=== PATIENT | male | born 2000 | race Caucasian/White ===

== ENCOUNTER 2024-04-01 12:27 | Emergency (ER) | payer BC, OTHER, SELFPAY ==
[2024-04-01 12:44] VITALS: BP 110/79; PULSE 80; RESP 16; TEMP 36.7; O2SAT 99
--- NOTE | 2024-04-01 12:53 | ED.EAR ---
HPI - Ear Problem General Chief complaint: Ear Stated complaint: ear infection Time Seen by Provider: 04/01/24 12:54 Source: patient, RN notes reviewed and old records reviewed Mode of arrival: ambulatory Limitations: no limitations History of Present Illness HPI Narrative: Patient with history of allergic rhinitis, chronic runny nose, presents with complaints of right ear pain that began a couple days ago. He reports symptoms are worsening. He denies any fever, chills, sweats. He has been taking [id number] pain relievers for symptoms with good relief. Voices no other concerns or complaints at this time Related Data Allergies Allergy/AdvReac Type Severity Reaction Status Date / Time No Known Allergies Allergy Verified 04/01/24 12:53 Review of Systems Review of Systems: All systems reviewed & are unremarkable except as noted in HPI and below Constitutional: Constitutional: Reports no additional constitutional complaints ENT: Reports system reviewed and no additional complaints, except as documented, Reports otalgia, Reports nasal congestion and Reports nasal discharge Cardiovascular: Cardiovascular: Reports no additional cardiovascular complaints Respiratory: Respiratory: Reports no additional respiratory complaints Gastrointestinal: Gastrointestinal: Reports no additional gastrointestinal complaints PMFSH Comments At the time of my signature, I reviewed and agree with the nursing past medical, surgical, social, and family history. There is no relevant family history pertinent to the patient complaint. Exam Const: General: cooperative, no acute distress, alert and awake Orientation/consciousness: oriented to person, oriented to place and oriented to time HENMT: Head: normal to inspection Ears: TM normal on the left and TM abnormal erythematous and with loss of landmarks Resp: Effort & Inspection: normal respiratory effort and able to speak in complete sentences Auscultation: clear to auscultation bilaterally, no crackles, no rales, no rhonchi and no wheezes Cardio: Palpation: normal PMI Rate: regular rate Rhythm: regular rhythm Heart sounds: S1 normal heart sound present and S2 normal heart sound present Neuro: General: oriented to person, oriented to place and oriented to time Cranial nerves: Yes CN's II-XII intact bilaterally Psych: Appearance: grossly normal Thought process: Normal thought process present Insight: Good insight present (Psych) Judgement: Good judgement present (Psych) Course Course Level of Care: Express Care Visit Vital Signs Vital signs: Vital Signs Temperature 98.1 F 04/01/24 12:44 Pulse Rate 80 04/01/24 12:44 Respiratory Rate 16 04/01/24 12:44 Blood Pressure 110/79 04/01/24 12:44 Pulse Oximetry 99 04/01/24 12:44 Oxygen Delivery Room Air 04/01/24 12:44 Temperature 98.1 F 04/01/24 12:44 Pulse Rate 80 04/01/24 12:44 Respiratory Rate 16 04/01/24 12:44 Blood Pressure 110/79 04/01/24 12:44 Pulse Oximetry 99 04/01/24 12:44 Oxygen Delivery Room Air 04/01/24 12:44 Reviewed Medical Decision Making MDM Narrative Medical decision making narrative: right ear pain, history and physical consistent with otitis media. Patient nontoxic appearing. Stable discharge home on p.o. antibiotic therapy. Discharge instructions reviewed with patient, as well as provided in writing per nursing staff. The instructions also include specific and strict return/GO TO THE ER as well as f/u information. All questions have been answered, and the patient deny any further questions with discharge and discharge plan. Some parts of this dictation were generated by voice recognition software and may contain typographical and/or grammatical inaccuracies. Medical Records Medical records reviewed: Yes I reviewed the external patient's medical records. Vital Signs Vital Signs: Vital Signs Temperature 98.1 F 04/01/24 12:44 Pulse Rate 80 04/01/24 12:44 Respiratory Rate 16 04/01/24 12:44 Blood Pressure 110/79 04/01/24 12:44 Pulse Oximetry 99 04/01/24 12:44 Oxygen Delivery Room Air 04/01/24 12:44 Temperature 98.1 F 04/01/24 12:44 Pulse Rate 80 04/01/24 12:44 Respiratory Rate 16 04/01/24 12:44 Blood Pressure 110/79 04/01/24 12:44 Pulse Oximetry 99 04/01/24 12:44 Oxygen Delivery Room Air 04/01/24 12:44 reviewed Lab Data Lab results reviewed: Yes I reviewed the patient's lab results. Lab results narrative: reviewed Discharge Plan Discharge Clinical Impression: Otitis media Qualifiers: Otitis media type: suppurative Chronicity: acute Laterality: right Recurrence: not specified as recurrent Spontaneous tympanic membrane rupture: without spontaneous rupture Qualified Code(s): H66.001 - Acute suppurative otitis media without spontaneous rupture of ear drum, right ear Patient Disposition: Home, Self-Care Condition: Stable Instructions: Antibiotic Form, Ear Infection (ED) Additional Instructions: take medications as prescribed. Follow with primary care provider. Emergency department for new or worse symptoms Patient Language: Pashto Prescriptions: New amoxicillin-pot clavulanate 875-125 mg tablet 1 tablet PO Q12H Qty: 20 0RF prednisone 50 mg tablet 50 mg PO DAILY Qty: 5 0RF Follow-up/Referrals: Dorothy,MD Robert [Primary Care Provider] - 2 Weeks Time of Disposition: 13:03
== END 2024-04-01 13:12 | disposition home or self-care (01) ==
PROVIDERS: Emergency Provider Nurse Practitioner Family; PCP Internal Medicine
DX: H66.001 Acute suppurative otitis media without spontaneous rupture of ear drum, right ear (principal)
CPT/HCPCS: 99213; G0463